=== PATIENT | male | born 1980 | race Caucasian/White ===

== ENCOUNTER 2017-06-17 18:35 | Emergency (ER) | payer OTHER ==
[2017-06-17 18:35] VITALS: BMI 29.0
--- NOTE | 2017-06-17 19:09 | C.PDOC ---
History Of Present Illness 37 year old male presents to the emergency department status-post sustaining a 12cm deep laceration to the left anterior thigh while he was using an electric saw at work. Time Seen by Provider: 06/17/17 19:09 Chief Complaint (Nursing): Abnormal Skin Integrity History Per: Patient History/Exam Limitations: no limitations Onset/Duration Of Symptoms: Hrs Location Of Injury: Left: Thigh Severity: Moderate Pain Scale Rating Of: 4 Past Medical History Reviewed: Historical Data, Nursing Documentation, Vital Signs Vital Signs: Last Vital Signs Temp 98.3 F 06/17/17 18:41 Pulse 84 06/17/17 20:47 Resp 18 06/17/17 20:47 BP 123/70 06/17/17 20:47 Pulse Ox 99 06/17/17 20:47 - Medical History PMH: No Chronic Diseases Surgical History: No Surg Hx - [facility] Procedures INJECT/INFUSE NEC (01/03/13) TETANUS TOXOID ADMINIST (04/22/14) Family History: States: No Known Family Hx - Social History Hx Tobacco Use: Yes Hx Alcohol Use: No Hx Substance Use: No - Immunization History Hx Tetanus Toxoid Vaccination: Yes Hx Influenza Vaccination: Yes (2013) Hx Pneumococcal Vaccination: Yes (2013) Review Of Systems Musculoskeletal: Positive for: Leg Pain Skin: Positive for: Other (laceration) Physical Exam - Physical Exam Appears: Non-toxic, No Acute Distress Skin: Other (12cm laceration at anterior left thigh, no active bleeding at present time) Extremity: Normal ROM, Capillary Refill Pulses: Left Femoral: Normal, Left Dorsalis Pedis: Normal ED Course And Treatment O2 Sat by Pulse Oximetry: 98 (RA) Pulse Ox Interpretation: Normal Progress Note: Plan: Adacel 0.5ml IM. Motrin 800mg PO. General Surgery Consult Reevaluation Time: 21:24 Reassessment Condition: Improved Disposition Counseled Patient/Family Regarding: Studies Performed, Diagnosis, Need For Followup, Rx Given - Disposition Referrals: [facility] [Outside] [facility] [Outside] Disposition: HOME/ ROUTINE Disposition Time: 19:09 Condition: FAIR Additional Instructions: Please have david removed on 07/02 either in the clinic or return to the ED. Please also follow up with workman's comp doctor Prescriptions: Cephalexin [Keflex] 500 mg PO TID #21 capsule Naproxen [Naprosyn] 1 tab PO BID PRN #25 tab PRN Reason: Pain Instructions: Wound Care (DC), Laceration Repair With [place] (DC) Forms: [employer] (Malagasy) Print Language: THAI - Clinical Impression Clinical Impression: Laceration - Scribe Statement The provider has reviewed the documentation as recorded by the Scribe (Boris Santana) Provider Attestation: All medical record entries made by the Scribe were at my direction and personally dictated by me. I have reviewed the chart and agree that the record accurately reflects my personal performance of the history, physical exam, medical decision making, and the department course for this patient. I have also personally directed, reviewed, and agree with the discharge instructions and disposition.
[2017-06-17] MEDS ORDERED: Tdap Vaccine 0.5 ml Vial (10-64 yrs) IM ONE ×2 (19:37→20:02)
[2017-06-17] MEDS ORDERED: Lidocaine 1%/Epinephrine 1:100000 30 ml vial IJ ONE ×2 (20:08→20:34)
[2017-06-17] MEDS ORDERED: Epinephrine /Lidocaine HCL 1:100,000/2% 30 ml INJ ONE (20:31)
[2017-06-17 21:26] VITALS: O2SAT 98
[2017-06-17 21:41] VITALS: BP 128/70; PULSE 81; RESP 20; TEMP 97
--- NOTE | 2017-06-17 23:07 | CP.PCM.CON ---
History of Present Illness - History of Present Illness History of Present Illness: General surgery consult note for Dr. Pedro Jones, PGY-1 Pt S & E at bedside at 2014 37M w/no sig PMH consulted for left thigh laceration x 1 day. Pt reports he was using a chain saw and was cutting through a wooden door when he ended up cutting into the anterior aspect of high left thigh. Pt reports momentary dizziness upon seeing the blood and pain. Does not want to move his left leg due to pain. Denies N & V, F & C, headache, vision changes, inability to walk. In ED - pt given pain medications, wound irrigated and Tdap administered. PMH: Denies PSH: Denies All: NKDA SH: Admits to occasional ETOH use (2-3 drinks every 3 mos), admits to tobacco use - 1ppd x 15 yrs, denies illicit drug use FH: Non contributory Review of Systems - Review of Systems All systems: reviewed and no additional remarkable complaints except - Constitutional Constitutional: absent: Chills, Fever - EENT Ears: Dizziness (non currently, only at time of incident) - Cardiovascular Cardiovascular: absent: Chest Pain - Gastrointestinal Gastrointestinal: absent: Abdominal Pain, Nausea, Vomiting - Musculoskeletal Musculoskeletal: absent: Muscle Cramps, Muscle Weakness, Numbness, Tingling - Integumentary Integumentary: Wounds (left thigh) Past Patient History - Past Social History Smoking Status: Heavy Smoker > 10 Cigarettes Daily - PSYCHIATRIC Hx Substance Use: No - SURGICAL HISTORY Hx Surgeries: No - ANESTHESIA Hx Anesthesia: No Meds Home Medications: Home Medication List Medication Instructions Recorded Confirmed Type Cephalexin [Keflex] 500 mg PO TID #21 capsule 06/17/17 Rx Naproxen [Naprosyn] 1 tab PO BID PRN #25 tab 06/17/17 Rx Allergies/Adverse Reactions: Allergies Allergy/AdvReac Type Severity Reaction Status Date / Time No Known Allergies Allergy Verified 06/17/17 18:59 Physical Exam - Constitutional Appears: Non-toxic, No Acute Distress - Head Exam Head Exam: ATRAUMATIC, NORMAL INSPECTION, NORMOCEPHALIC - Eye Exam Eye Exam: EOMI, Normal appearance - ENT Exam ENT Exam: Mucous Membranes Moist, Normal Exam - Neck Exam Neck exam: Positive for: Full Rom, Normal Inspection - Respiratory Exam Respiratory Exam: Clear to Auscultation Bilateral, NORMAL BREATHING PATTERN. absent: Rales, Rhonchi, Wheezes, Respiratory Distress - Cardiovascular Exam Cardiovascular Exam: REGULAR RHYTHM, +S1, +S2 - GI/Abdominal Exam GI & Abdominal Exam: Normal Bowel Sounds, Soft. absent: Distended, Tenderness - Extremities Exam Extremities exam: Positive for: full ROM. Negative for: normal inspection Additional comments: left thigh anterior aspect with large laceration approximately 12cm long, linear , 5 cm deep, through subcutaneous tissue, small area of fascial violated in middle of laceration, approximately 2cm of fascia transected, muscle still in intact, wound with hemostasis Patient able to flex and extend leg, dorsiflex foot - Neurological Exam Neurological exam: Alert, CN II-XII Intact, Oriented x3 Additional comments: sensation of left lower extremity intact - Psychiatric Exam Psychiatric exam: Normal Affect, Normal Mood - Skin Skin Exam: Normal Color, Warm Additional comments: see extremity exam for left thigh wound exam Results - Vital Signs Recent Vital Signs: Last Vital Signs Temp 97 F L 06/17/17 21:40 Pulse 81 06/17/17 21:40 Resp 20 06/17/17 21:40 BP 128/70 06/17/17 21:40 Pulse Ox 98 06/17/17 21:40 Assessment & Plan - Assessment and Plan (Free Text) Assessment: 37M w/no sig PMH consulted for left anterior thigh laceration, approximately 12 cm long and 5 cm deep Plan: consent obtained with family and nurse as witness at bedside- treatment paperwork signed Left anterior thigh laceration repaired using 2 layer closure with 4-0 vicryl and reyna to close skin Irrigated with 1 L of NS under high pressure Administered local - Lidocaine 1% w/epi Wound dressed with gauze and abdominal pad, secured with taiwo bandage Wound care instructions rendered Instructed patient to follow up for staple removal in 2 weeks at either the ED or surgical clinic- pt indicating he would prefer the surgical clinic To be discharged on Antibiotics and pain medication as per ED physician CHRISTOPH attending Karen, PGY-1 - Date & Time Date: 06/17/17 Time: 20:15 Laceration - Laceration Repair No standard instances Wound Length (In cm): 12 ft Description Of Wound: Linear, Contaminated With: (small amount of debris from saw) Wound Cleansed With: Sterile Saline Anesthesia: Lidocaine 1%, With Epi Wound Examination: Irrigated With Saline, No FB With Wound Exploration, No Tendon Injury With Wound Exploration, Foreign Material Removed W/Irrigation, Foreign Material Removed Manually Wound Debridement/Revision: Wound Margins Revised Wound Closure: Reyna Suture Technique And Material Used: Vicryl (4-0 used to close subcutaneous layer ) Wound Complexity: Simple Wound Complexity: Simple
== END 2017-06-17 21:41 | disposition home or self-care (01) ==
LOC: C.ER 18:35
DX: S71.112A Laceration without foreign body, left thigh, initial encounter (principal); W45.8XXA Other foreign body or object entering through skin, initial encounter; Y92.89 Other specified places as the place of occurrence of the external cause; Y99.0 Civilian activity done for income or pay

== ENCOUNTER 2017-07-17 19:55 | Emergency (ER) | payer OTHER ==
[2017-07-17 19:56] VITALS: BMI 29.0
[2017-07-17 20:06] VITALS: BP 111/73; PULSE 80; RESP 12; TEMP 98.4; O2SAT 97
--- NOTE | 2017-07-17 20:45 | C.PDOC ---
History Of Present Illness 37-year-old male, presents to the emergency department for david removal. Patient states he had david place to his left upper leg one month ago, and was unable to return for removal because he was "very busy." Denies any nausea/ vomiting, fever, numbness/weakness, discharge from area or any other associated symptoms. No other complaints at this time. Time Seen by Provider: 07/17/17 20:08 Chief Complaint (Nursing): Suture/Staple Removal History Per: Patient History/Exam Limitations: no limitations Past Medical History Reviewed: Historical Data, Nursing Documentation, Vital Signs Vital Signs: Last Vital Signs Temp 98.4 F 07/17/17 20:04 Pulse 80 07/17/17 20:04 Resp 12 07/17/17 20:04 BP 111/73 07/17/17 20:04 Pulse Ox 97 07/17/17 21:38 - [employer] Procedures INJECT/INFUSE NEC (01/03/13) TETANUS TOXOID ADMINIST (04/22/14) Family History: States: No Known Family Hx - Social History Hx Tobacco Use: Yes Hx Alcohol Use: No Hx Substance Use: No - Immunization History Hx Tetanus Toxoid Vaccination: Yes Hx Influenza Vaccination: Yes (2013) Hx Pneumococcal Vaccination: Yes (2013) Review Of Systems Constitutional: Negative for: Fever, Chills Gastrointestinal: Negative for: Nausea, Vomiting Skin: Negative for: Rash Neurological: Negative for: Weakness, Numbness Physical Exam - Physical Exam Appears: Non-toxic, No Acute Distress Skin: Normal Color, Warm, Dry, No Rash Neck: Normal ROM Chest: Symmetrical Respiratory: No Accessory Muscle Use Extremity: No Deformity, No Swelling, Other ( left anterior thigh with david in place) Neurological/Psych: Oriented x3, Normal Speech ED Course And Treatment O2 Sat by Pulse Oximetry: 97 (RA) Pulse Ox Interpretation: Normal Medical Decision Making Medical Decision Making: [place] removed, pt tolerated procedure well. Disposition - Disposition Disposition: HOME/ ROUTINE Disposition Time: 20:44 Condition: STABLE Additional Instructions: Follow up with your PMD as needed. Return to ED if feel worse. Instructions: Staple Removal Forms: [employer] (Setswana) Print Language: VIETNAMESE - Clinical Impression Clinical Impression: Removal of suture - Scribe Statement The provider has reviewed the documentation as recorded by the Scribe (Zunaira Juan) All medical record entries made by the Scribe were at my direction and personally dictated by me. I have reviewed the chart and agree that the record accurately reflects my personal performance of the history, physical exam, medical decision making, and the department course for this patient. I have also personally directed, reviewed, and agree with the discharge instructions and disposition.
== END 2017-07-17 20:48 | disposition home or self-care (01) ==
LOC: C.ER 19:55
DX: Z48.02 Encounter for removal of sutures (principal)